=== PATIENT | female | born 1985 | race Caucasian/White ===

== ENCOUNTER → 2017-06-21 | Outpatient (CLI) | payer BC ==
[2017-06-21 10:54] LABS: BASOPHILS # (AUTO) 0.78 10*3/UL; BASOPHILS % (AUTO) 4.8 % (0-1); EOSINOPHILS # (AUTO) 0.42 10*3/UL; EOSINOPHILS % (AUTO) 2.6 % (0-8); HEMATOCRIT 39.9 % (37.0-47.0); HEMOGLOBIN 13.5 g/dL (12.0-16.0); LYMPHOCYTES # (AUTO) 4.32 10*3/uL; MEAN CORPUSCULAR HEMOGLOBIN 30.8 PG (27-31); MEAN CORPUSCULAR HGB CONC 33.8 g/dL (33-37); MEAN CORPUSCULAR VOLUME 90.9 FL (81-99); MEAN PLATELET VOLUME 9.5 FL (7.4-12.2); MONOCYTES # (AUTO) 2.15 10*3/UL (0.3-0.8); MONOCYTES % (AUTO) 13.2 % (5-15); NEUTROPHILS % (AUTO) 52.2 % (50-80); RED BLOOD COUNT 4.39 10^6/uL (4.20-5.40)
[2017-06-21 11:04] LABS: BLOOD UREA NITROGEN 5 mg/dL (7-22); CALCIUM 9.3 mg/dL (8.7-10.7); CHOL/HDL RATIO 3.16 RATIO (0-4.0); EST GLOMERULAR FILTRATION > 60 (>60 ml/min/1.73m(2)); HDL CHOLESTEROL 43 mg/dL (40-150); SERUM ALBUMIN 4.2 g/dL (3.5-4.8); SERUM CHOLESTEROL 136 mg/dL (120-200)
[2017-06-21 11:48] LABS: HEMOGLOBIN A1C 6.45 % (4.2-6.0)
[2017-06-21 12:28] LABS: FREE T4 (FREE THYROXINE) 1.11 ng/dL (0.93-1.71); PLATELET MORPHOLOGY COMMENT NORMAL MORPHOLOGY (NORM); RBC MORPHOLOGY COMMENT NORMAL MORPHOLOGY (NORM); WBC MORPHOLOGY COMMENT NORMAL MORPHOLOGY (NORM)
== END ==
LOC: LAB 10:43
PROVIDERS: ATTEND Family Medicine
DX: R10.13 Epigastric pain (principal); R53.83 Other fatigue; R94.6 Abnormal results of thyroid function studies; R79.9 Abnormal finding of blood chemistry, unspecified; Z85.72 Personal history of non-Hodgkin lymphomas; Z72.0 Tobacco use
CPT/HCPCS: 36415; 80053; 80061; 82306; 83036; 84439; 84443; 85025